=== PATIENT | female | born 1995 | race African-American/Black ===

== ENCOUNTER 2018-02-13 11:53 | Emergency (ER) | payer OTHER ==
[~2018-02-13] VITALS: Ht 170.2 cm; Wt 59.0 kg
[2018-02-13 12:12] VITALS: BP 115/79
== END 2018-02-13 14:02 | disposition home or self-care (01) ==
LOC: ER 11:53
DX: S80.862A Insect bite (nonvenomous), left lower leg, initial encounter (principal); S80.861A Insect bite (nonvenomous), right lower leg, initial encounter; Z88.1 Allergy status to other antibiotic agents; W57.XXXA Bitten or stung by nonvenomous insect and other nonvenomous arthropods, initial encounter; Y93.89 Activity, other specified; Y92.89 Other specified places as the place of occurrence of the external cause; Y99.8 Other external cause status
CPT/HCPCS: 99282; 99283

== ENCOUNTER 2018-06-27 08:58 | Emergency (ER) | payer OTHER ==
[~2018-06-27] VITALS: Ht 170.2 cm; Wt 78.0 kg
[2018-06-27] MEDS ORDERED: SODIUM CHLORIDE 0.9% 1,000 ML IV ONE (09:37)
[2018-06-27] MEDS ORDERED: ONDANSETRON HCL 4MG/2ML INJ IV STA (09:37)
[2018-06-27 09:45] LABS: CLARITY URINE CLOUDY (CLEAR); COLOR URINE YELLOW (YELLOW); KETONES URINE NEGATIVE (NEGATIVE); LEUKOCYTE ESTERASE URINE NEGATIVE (NEGATIVE); NITRITE URINE NEGATIVE (NEGATIVE); OCCULT BLOOD URINE NEGATIVE (NEGATIVE); PH URINE 5.5 (4.5-8.0); PROTEIN URINE NEGATIVE (NEGATIVE); SPECIFIC GRAVITY URINE 1.034 (1.005-1.030)
[2018-06-27] MEDS ORDERED: DICYCLOMINE HCL 10MG CAPSULE PO ONE (09:45)
[2018-06-27 11:36] LABS: BASOPHILS % 0.3 % (0.0-2.0); EOSINOPHILS % 0.9 % (0.0-5.0); HEMATOCRIT. 34.2 % (36.0-48.0); HEMOGLOBIN. 11.2 g/dL (12.0-16.0); LYMPHOCYTES % 26.6 % (20.0-50.0); MEAN CORPUSCULAR HEMOGLOBIN 28.1 pg (28.0-32.0); MEAN CORPUSCULAR VOLUME 85.3 fL (81.0-99.0); MEAN PLATELET VOLUME 8.2 fl (7.4-10.4); MONOCYTES % 10.5 % (2.0-8.0); NEUTROPHILS % 61.7 % (40.0-76.0); PLATELET 232 x1000/uL (130-400)
[2018-06-27 11:40] LABS: PROTHROMBIN TIME 10.2 sec (9.1-11.1)
[2018-06-27 11:42] LABS: CHLORIDE 107 mEq/L (98-107)
[2018-06-27 11:44] LABS: HCG SCREEN NEGATIVE
[2018-06-27 14:21] VITALS: BP 110/66
== END 2018-06-27 14:24 | disposition home or self-care (01) ==
LOC: ER 11:38
DX: R10.13 Epigastric pain (principal); R19.7 Diarrhea, unspecified; R11.2 Nausea with vomiting, unspecified; Z88.0 Allergy status to penicillin
CPT/HCPCS: 36415; 74176; 80053; 81003; 81025; 83690; 84703; 85025; 85610; 96361; 96374; 99284; J2405; J7030

== ENCOUNTER 2018-10-26 12:05 | Emergency (ER) | payer OTHER ==
[~2018-10-26] VITALS: Ht 170.2 cm; Wt 81.0 kg
[2018-10-26] MEDS ORDERED: TETANUS, DIPHTHERIA, PERTUSSIS VAC/PF 0.5ML (>7YR OLD) IM ONE (14:30)
[2018-10-26] MEDS ORDERED: IBUPROFEN 800MG TABLET PO ONE (14:30)
[2018-10-26] MEDS ORDERED: BACITRACIN ZINC OINT UDPKT TOP ONE (14:30)
[2018-10-26] MEDS ORDERED: LIDOCAINE HCL/PF 1% 10 MG/ML 5ML VIAL IJ ONE (14:30)
[2018-10-26 14:38] VITALS: BP 133/77
== END 2018-10-26 15:12 | disposition home or self-care (01) ==
LOC: ER 12:05
DX: S61.012A Laceration without foreign body of left thumb without damage to nail, initial encounter (principal); Z88.0 Allergy status to penicillin; W25.XXXA Contact with sharp glass, initial encounter; Y93.89 Activity, other specified; Y92.018 Other place in single-family (private) house as the place of occurrence of the external cause
CPT/HCPCS: 12001; 99283; Z7610; 90715; J3490

== ENCOUNTER 2025-03-05 05:07 | Emergency (ER) | payer MEDICAID ==
[~2025-03-05] VITALS: Ht 167.6 cm; Wt 95.0 kg
[~2025-03-05 05:07] MED LIST: HYDR453.3; LORA10TA7
[2025-03-05 05:23] VITALS: O2SAT 100
[2025-03-05 05:59] LABS: BASOPHILS % 0.2 % (0.0-2.0); EOSINOPHILS % 0.3 % (0.0-5.0); HEMATOCRIT. 36.5 % (36.0-48.0); HEMOGLOBIN. 12.1 g/dL (12.0-16.0); LYMPHOCYTES % 42.8 % (20.0-50.0); MEAN PLATELET VOLUME 8.5 fl (7.4-10.4); MONOCYTES % 11.4 % (2.0-8.0); NEUTROPHILS % 45.3 % (40.0-76.0); PLATELET 265 x1000/uL (130-400); RED BLOOD CELL COUNT 4.32 mill/uL (4.2-5.4); RED CELL DISTRIBUTION WIDTH 14.0 % (11.6-14.6)
[2025-03-05] MEDS: IBUPROFEN 800MG TABLET PO ONE (06:01)
[2025-03-05 06:10] LABS: CLARITY URINE CLEAR (CLEAR); COLOR URINE YELLOW (YELLOW); GLUCOSE URINE NEGATIVE (NEGATIVE); KETONES URINE NEGATIVE (NEGATIVE); LEUKOCYTE ESTERASE URINE NEGATIVE (NEGATIVE); NITRITE URINE NEGATIVE (NEGATIVE); OCCULT BLOOD URINE NEGATIVE (NEGATIVE); PH URINE 6.5 (4.5-8.0); PROTEIN URINE NEGATIVE (NEGATIVE); SPECIFIC GRAVITY URINE 1.030 (1.005-1.030); UROBILINOGEN URINE 0.2 E.U./dL (0.2-1.0)
[2025-03-05 06:12] LABS: CREATININE 0.7 mg/dL (0.6-1.0); HCG SCREEN POSITIVE; UREA NITROGEN BLOOD 11 mg/dL (9-23)
[2025-03-05 06:13] LABS: ASPARTATE AMINOTRANSFERASE 13 IU/L (<34)
[2025-03-05 06:14] LABS: BILIRUBIN DIRECT < 0.1 mg/dL (<=3.0); BILIRUBIN TOTAL 0.3 mg/dL (0.1-1.0); PROTEIN TOTAL 7.1 g/dL (6.0-8.3)
[2025-03-05 07:45] VITALS: BP 114/75; PULSE 86; RESP 20; TEMP 36.8; O2SAT 99
== END 2025-03-05 08:16 | disposition home or self-care (01) ==
LOC: ER 05:31
DX: O20.0 Threatened abortion (principal); I51.9 Heart disease, unspecified; Z86.73 Personal history of transient ischemic attack (TIA), and cerebral infarction without residual deficits; Z79.899 Other long term (current) drug therapy; Z3A.01 Less than 8 weeks gestation of pregnancy; Z88.0 Allergy status to penicillin
CPT/HCPCS: 36415; 76830; 76856; 80048; 80076; 81003; 81025; 84702; 84703; 85025; 86850; 86900; 99284